=== PATIENT | male | born 1940 | race Caucasian/White ===

== ENCOUNTER 2021-07-14 05:40 | Day surgery (SDC) | payer MEDICARE ==
[~2021-07-14] VITALS: Ht 162.6 cm; Wt 65.1 kg
[~2021-07-14 05:40] MED LIST: ASPIRIN EC81 MG PO; LANSOPRAZOLE15 MG PO; LISINOPRIL-HCT1 EACH PO; OMEPRAZOLE20 MG PO; PROSCAR5 MG PO; SIMVASTATIN10 MG PO; TAMSULOSIN HCL0.4 MG PO; UNISOM25 MG PO
[2021-07-14] MEDS ORDERED: MULTI-VITAMIN1 EACH PO (06:05)
[2021-07-14] MEDS ORDERED: IRON18 MG PO (06:05)
[2021-07-14] MEDS ORDERED: OXYCODONE HCL5 MG PO (08:47)
[2021-07-14] MEDS ORDERED: XARELTO10 MG PO (08:47)
[2021-07-14] MEDS ORDERED: CELECOXIB200 MG PO (08:47)
[2021-07-14] MEDS ORDERED: SENNA LAX8.6 MG PO (08:48)
[2021-07-14] MEDS ORDERED: ACETAMINOPHEN500 MG PO (08:48)
--- NOTE | 2021-07-14 09:01 | NUR ---
07/14/21 0901 Concetta Gee 0873 PATIENT ARRIVES TO PACU AWAKE BUT DROWSY. RESP EVEN AND UNLABORED, MASK AT 6 LITERS. PATIENT DENIES PAIN OR NAUSEA. LOW BP, MEDICATED BY THU LOPEZ 0900 IMAGING AT BEDSIDE. PATIENT AWAKE. DENIES PAIN OR NAUSEA. RESP EVEN AND UNLABORED, MASK OFF, ROOM AIR SATS >95%. CONTINUES TO DENY PAIN OR NAUSEA.
--- NOTE | 2021-07-14 09:41 | NUR ---
0930/PT ARRIVED TO UNIT VIA STRETCHER FROM PACU. PT WAS AWAKE AND ORIENTED ON ARRIVAL. HEARING AIDS IN PLACE AND ANSWERS QUESTIONS APPROPRIATELY. PT VITALS AND RESP WERE WNL. DRESSING WAS CLEAN DRY AND INTACT. PEDAL PULSE WERE STRONG. SCD IN PLACE. IS AT BEDSIDE. PT PROVIDED WATER AND CRACKERS. POC DISCUSSED PT AGREEABLE. DENIES PAIN AND NAUSEA. CALL LIGHT WITHIN REACH. NO NEEDS VOICED.
--- NOTE | 2021-07-14 10:16 | NUR ---
1000: JOHN MADRID AT THE BEDSIDE TO COMPLETE POSTOP NERVE BLOCKS. SECOND DOSE OF TXA INFUSING ORDERED PER MD. PT COMFORTABLE WITHOUT NEEDS AND REQUESTS. CALL LIGHT WITHIN REACH
--- NOTE | 2021-07-14 10:55 | NUR ---
1030/PT AWAKE AND ALERT. WATCHING TV ON STRETCHER. VITALS WNL. PEDAL PULSE STRONG. NO CHANGE TO DRESSING X2 FROM ARIVAL. TOLERATES PO INTAKE WELL. DENIES PAIN OR NAUSEA. IV CONVERTED TO SALINE LOCK. SPINAL RESOLVING, L5. COMFORTABLE WITHOUT NEEDS AT THIS TIME. CALL LIGHT WITHIN REACH.
--- NOTE | 2021-07-14 11:47 | NUR ---
1135/PT AWAKE AND ORIENTED. WATCHING TV ON STRETCHER. VSS. DRESSING CLEAN DRY AND INTACT. PT DENIES PAIN OR NAUSEA. PT DENIES SENSATION TO VOID. WILL REVISIT WITHIN HALF HOUR. PT BP WAS 86/50 VOICED TO KELLY BECKMAN. IS AT BEDSIDE. CALL LIGHT WITHIN REACH.
--- NOTE | 2021-07-14 11:52 | NUR ---
1145: MANUAL BP TAKEN BY THIS RN, 84/60. PT DENIES DIZZINESS, NAUSEA, SOB. JOHN MOORE NOTIFIED AND NEW ORDER RECEIVED TO INFUSE 200ML BOLUS OF LR. TO CONT TO MONITOR
--- NOTE | 2021-07-14 11:56 | NUR ---
1150: BOLUS INFUSING ORDERED. PT COMFORTABLE WITHOUT NEEDS OR CONCERNS AT THIS TIME. CALL LIGHT WITHIN REACH
--- NOTE | 2021-07-14 12:30 | NUR ---
1215/PT AWAKE AND ORIENTED. VSS. BP WITHIN BRIAR WOOD SORTER PARAMETERS AT THIS TIME. CONTINUES TO DENY PAIN NAXUSEA OR DIZZINESS. DRESSINGS CLEAN DRY AND INTACT. CMS WITHIN NORMAL LIMITS. URINAL PROVIDED. PT ATTEMPT MADE BUT ANABLE TO VOID AT THIS TIME. BLADDDER SCAN FOR 371 ML. NO FURTHER ACTION PER HOSPITAL PROTOCAL AT THIS TIME. ICE SCD MARITZA HOSE STILL RAMAIN IN PLACE. REGULAR LUNCH OFFERED PT DECLINES. UPDATED ON POC. PT AGREEABLE. [employer] EM[employer] ARRIVED AT BEDSIDE TO VISIT WITH PT. NO NEEDS VOICED. CALL LIGHT WITHIN REACH.
--- NOTE | 2021-07-14 13:14 | NUR ---
1300: PT REPORTS INCREASING PAIN LEVEL AND REQUESTS PAIN RX PRIOR TO WORKING WITH PHYSICAL THERAPIST. PO RX ADMINISTERED ORDERED AND ICE WATER REPLENISHED. NO FURTHER NEEDS VOICED, CALL LIGHT WITHIN REACH
--- NOTE | 2021-07-14 13:50 | NUR ---
1338/PT ALERT AND ORIENTED. VSS. PT DENIES NAUSEA AND REPORTS PAIN LEVEL AT 2 WHEN MOVING LEG. PT DENIES DIZINESS. PEDAL PULSE STRONG. SCD IN PLACE. DRESSING CLEAN DRY AND INTACT. PT DENIES LUNCH WHEN OFFERED. PT REPORTS NO ISSUES. CALL LIGHT WITHIN REACH. 1345/PT ARRIVED AT BEDSIDE TO WORK WITH PT.
--- NOTE | 2021-07-14 14:55 | NUR ---
1430: PT RETURNS TO UNIT FROM PHYSICAL THERAPY SESSION. SAFE TO DC HOME PER PHYSICAL THERAPIST. REMAINS UNABLE TO VOID AT THIS TIME. BLADDER SCANNED, 404MLS. VSS, RESP EVEN AND UNLABORED. SOUP ORDERED PER PT REQUEST. CRYO CUFF, COMPRESSION SOCKS AND SCDS IN PLACE. COMFORTABLE WITHOUT NEEDS AND REQUESTS. CALL LIGHT WITHIN REACH 1450: TC PLACED TO MD ION. NOTIFIED OF DIFFICULTY VOIDING. PT TAKES MAINTENANCE FLOMAX AT HOME. NEW ORDER RECEIVED TO ADMINISTER 0.8MG FLOMAX PO.
--- NOTE | 2021-07-14 16:21 | NUR ---
1615: PT AMBULATES TO BR WITH WALKER ASSIST WITH STANDBY FROM THIS RN. REPORTS BEGINNING TO FEEL THE URGE TO VOID "A LITTLE BIT". UNABLE TO VOID AT THIS TIME, BACK TO STRETCHER. BLADDER SCANNED, 454MLS. NO FURTHER INTERVENTION NEEDED AT THIS TIME PER HOSPITAL PROTOCOL. WARM BLANKET PROVIDED. NO NEEDS, CALL LIGHT WITHIN REACH
--- NOTE | 2021-07-14 17:55 | NUR ---
1710: PT AWAKE AND ALERT IN BED. VSS, RESP EVEN AND UNLABORED. DENIES PAIN AND NAUSEA AT THIS TIME. AMBULATES TO BR WITH WALKER ASSIST AND STANDBY FROM THIS RN. UNABLE TO VOID A STEADY STREAM, 25ML OUT. PT REPORTS "ONLY DRIBBLES" BACK TO STRETCHER. BLADDER SCANNED, 486MLS. CRYO CUFF ICE CHANGED AND PT PROVIDED WARM BLANKETS. 1725: TC PLACED TO MD ION AND REPORT PROVIDED. NEW ORDERS RECEIVED TO STRAIGHT CATH PT AND TAKE TO MED SURG UNIT UNTIL ABLE TO PASS VOIDING TRIAL 1740: STRAIGHT CATH'D FOR 400MLS. SECOND DOSE OF ANCEF GIVEN ORDERED. BED RECEIVED IN ROOM 125 FOR PT
--- NOTE | 2021-07-14 18:20 | NUR ---
1815: PT WHEELED TO ROOM 125. BEDSIDE SHIFT REPORT GIVEN TO CHAMPION, RN AND CARE ASSUMED
--- NOTE | 2021-07-14 18:26 | NUR ---
PT ARRIVED TO FLOOR VIA STRETCHER WTIH . PT DENIES PAIN. PT ABLE TO SCOOT OVER TO BED. PT DRINKING WATER. PT NEEDS TO PEE CALL LIGHT WTIHIN REACH
--- NOTE | 2021-07-14 18:41 | NUR ---
PROVIDED PTS WITH PHONE NUMBER FOR YURIDIA VEGAT
--- NOTE | 2021-07-14 19:22 | NUR ---
RECEIVED REPORT FROM DAY SHIFT RN. PATIENT IS RESTING IN BED DRINKING COFFEE. AND SON PRESENT AT THE BEDSIDE. NO NEEDS NOTED. CALL LIGHT IN REACH.
--- NOTE | 2021-07-14 20:23 | NUR ---
PATIENT PROVIDED WITH COFFEE AND FRESH WATER. PATIENT DENIES THE NEED TO VOID AT THIS TIME. PATIENT DENIES ANY FURTHER NEEDS. CALL LIGHT IN REACH.
--- NOTE | 2021-07-14 21:50 | NUR ---
PHONE CALL TO DR LEMON TO UPDATE ABOUT PT VOIDING 300. STATED THAT IT WAS UP TO PT/FAMILY IF HE WANTS TO DISCHARGE. FAMILY PLANS TO TAKE PT HOME. PRIMARY RN DONALD NOTIFIED.
--- NOTE | 2021-07-14 22:27 | NUR ---
PATIENT ASSESMENT COMPLETED. MEDICATIONS GIVEN PER ORDER. PATIENT DENIES ANY PAIN. PATIENTS DRESSING ON RIGHT HIP IS C/D/I. PATIENT EDUCATION PROVIDED TO PATIENT, PATIENTS AND SON. PATIENT AND FAMILY DENY ANY QUESTIONS. PATIENTS VITALS TAKEN AND RECORDED. INTAKE AND OUTPUT RECORDED. IV REMOVED AND TIP INTACT. PATIENTS BELONGINGS WITH PATIENT AND FAMILY. CRYO AND CRYO PLUG IN GIVEN TO PATIENT. CRYO FILLED WITH ICE.
--- NOTE | 2021-07-16 07:02 | OR ---
[facility] [address] [place], [place] [address] Signed DATE OF OPERATION: 07/14/2021 SURGEON: Ty Stern MD PREOPERATIVE DIAGNOSIS: Severe DJD, right hip. POSTOPERATIVE DIAGNOSIS: Severe DJD, right hip. PROCEDURE PERFORMED: Right total hip arthroplasty. SAMPLE PREPARATION SUPERVISOR: NIKKO Cox. Veronika was present and critical for all portions of procedure. ANESTHESIA: Spinal. BLOOD LOSS: 200 mL. IMPLANTS: Christel size 4, Accolate 2 stem 54 mm cup and a -5 head. BRIEF HISTORY: Pacheco is an 81-year-old gentleman with progressive worsening of severe osteoarthritis. Risks and benefits of operative treatment were discussed with him. He elected to proceed. DESCRIPTION OF PROCEDURE: Once consent was obtained, he was taken to the operating room. After adequate anesthesia, he was placed in left lateral decubitus position. All downside pressure points were well padded and an axillary roll was placed. The hip was then prepped and draped in a standard sterile fashion. Three stab holes for the Tj ray were then placed in the iliac crest three fingerbreadths posterior to the ASIS. The hip was then approached through an anterior lateral incision at the anterior margin of the femur. This was carried through skin and subcutaneous tissue. The IT band was divided longitudinally and the vastus lateralis was divided from the anterior portion of the Electronically Signed By: TY STERN MD 07/16/21 0702 PATIENT NAME: PACHECO FERREIRA A OPERATIVE REPORT DATE OF : 40 REPORT #: [id number] PHYSICIAN: TY STERN MD PCP: JESSICA SERRANO MD REPORT IS CONFIDENTIAL AND NOT TO BE RELEASED WITHOUT AUTHORIZATION [facility] [address] [place], [place] [address] Signed trochanter distally and elevated subperiosteally around posteromedially. The anterior capsule was then divided right along the gluteus medius anteriorly. It was taken up to the acetabular rim and then peeled off the anterior neck. Once this was accomplished, the femoral neck cut was made one fingerbreadth above the lesser trochanter. The femoral head was then removed. All bleeders were cauterized as we went. The periacetabular soft tissue was then removed to allow good exposure of the acetabular rim and pulvinar was removed and cauterized. Once this was completed, the wand was used to register fine anatomic points of the acetabulum. A good was obtained. The reamer was then brought in. We reamed 1st with a 53 followed by 54. This was done in 40 degrees of abduction and 23 degrees of anteversion. The cup was then impacted into position and was quite stable. The acetabular liner was then impacted until it was stable. Attention was then turned to the proximal femur. The proximal femur was opened using vinicius cutter followed by the Cesar aweva. It was then sequentially broached to a 4, which was quite well fitting. The trial neck and head were then placed at +0 initially, which was way too long, so we went to a -5. This showed good leg lengths and good stability with no Shuck. The hip was then dislocated and the trials removed. The final stem was impacted until it was at the same height as the trial. The -5 ceramic head was then impacted. The hip was reduced, taken through range of motion to include 100 degrees of flexion with 25 internal rotation, 45 external rotation. Extension was about 10 degrees. The wound was copiously irrigated with normal saline, total of 3 L was used. There was a soak in the middle with Irrisept. The vastus and IT band layers were then closed using #2 Stratafix, subcutaneous tissue with 0 Quill and the skin with a 3-0 Stratafix. Steri-Strips were applied. Wound was dressed with an Acticoat 7 dressing. He was awakened, taken to the recovery room in satisfactory condition. All sponge, needle and instrument counts were correct. Ty Stern MD BA/MODL /[id number] Copies: ~ Electronically Signed By: TY STERN MD 07/16/21 0702 PATIENT NAME: PACHECO FERREIRA OPERATIVE REPORT DATE OF : 40 REPORT #: [id number] PHYSICIAN: TY STERN MD PCP: JESSICA SERRANO MD REPORT IS CONFIDENTIAL AND NOT TO BE RELEASED WITHOUT AUTHORIZATION
== END 2021-07-14 22:20 | disposition home or self-care (01) ==
LOC: MS 05:40 → DS 05:40 → MS 18:00 → DS 22:20
PROVIDERS: ATTEND Specialist
PROC: 0SR90JZ Replacement of Right Hip Joint with Synthetic Substitute, Open Approach (ICD-10-PCS; principal; 2021-07-14 06:45)
DX: M16.11 Unilateral primary osteoarthritis, right hip (principal); I10 Essential (primary) hypertension; N40.0 Benign prostatic hyperplasia without lower urinary tract symptoms; E78.5 Hyperlipidemia, unspecified; K21.9 Gastro-esophageal reflux disease without esophagitis; Z87.891 Personal history of nicotine dependence
CPT/HCPCS: 01214; 36415; 64447; 72170; 76942; 80053; 85025; 97161; A9270; C1776; J0690; J1100; J1885; J2001; J2250; J2704; J2795; J7121